=== PATIENT | female | born 1945 ===

== ENCOUNTER → 2018-07-28 19:52 | Outpatient (REF) | payer SELFPAY ==
[2018-08-01 15:55] LABS: Glucose-6-Phosphate Dehydrogen 13.3 U/g Hgb (7.0-20.5)
== END ==
LOC: LAB 19:52
PROVIDERS: Visit Provider Naturopath
DX: C50.912 Malignant neoplasm of unspecified site of left female breast (principal); D64.81 Anemia due to antineoplastic chemotherapy; R53.0 Neoplastic (malignant) related fatigue
CPT/HCPCS: 82955